=== PATIENT | male | born 1980 | race American Indian/Alaskan Native ===

== ENCOUNTER 2017-04-11 14:57 | Outpatient (CLI) | payer BC ==
--- NOTE | 2017-04-11 15:25 | XRay Report ---
RIGHT SHOULDER: Pain. Routine views demonstrate normal bony and soft tissue structures with normal joint alignment of the shoulder. IMPRESSION: Normal study.
== END 2017-04-11 14:58 | disposition home or self-care (01) ==
LOC: SPVIMAG 14:57
PROVIDERS: ATTEND Orthopaedic Surgery
DX: M25.511 Pain in right shoulder (principal)